=== PATIENT | male | born 1950 | race Caucasian/White ===

== ENCOUNTER → 2017-01-26 | Outpatient (CLI) | payer MEDICARE, OTHER ==
--- NOTE | 2017-01-26 13:51 | RADRPT ---
PROCEDURE: Renal US. CLINICAL INDICATION: Pain TECHNIQUE: Multiple sonographic images of the kidneys were obtained. The images were reviewed on a PACS workstation. COMPARISON: No prior studies are available for comparison. FINDINGS: The kidneys are well visualized. The right kidney measures 11.1 cm. The left kidney measures 10.7 cm . There is bilateral cortical thinning a an increased echogenicity of the kidneys. There is no evide nce for obstructive uropathy or nephrolithiasis. Thickened bladder wall, measuring up to 5 mm. There are two small parapelvic cysts in the right kidney, the largest measuring up to 1.4 cm. IMPRESSION: Echogenic kidneys suggestive of medical renal disease. Mild bladder wall thickening up to 5 mm, nonspecific. RPTAT: QQ Physician Oneil Date Time Electronically viewed and signed by Physician Oneil on 01/26/2017 13:51 /
== END | disposition home or self-care (01) ==
LOC: U/S 11:05
PROVIDERS: ATTEND Internal Medicine
DX: R10.9 Unspecified abdominal pain (principal)
CPT/HCPCS: 76775

== ENCOUNTER 2017-06-30 19:45 | Emergency (ER) | END 2017-06-30 23:40 | disposition home or self-care (01) ==